=== PATIENT | female | born 1975 | race Caucasian/White ===

== ENCOUNTER → 2019-10-07 | Outpatient (CLI) | payer OTHER ==
--- NOTE | 2019-10-07 10:55 | KCIC ---
EXAM: ABDOMEN ONE VIEW. HISTORY: Reason pill endoscopy. Assess device clearance prior MRI. COMPARISON: None. FINDINGS: A frontal view of the abdomen is obtained. A device projects over the left upper quadrant, possibly representing a pill endoscopy device in the colonic splenic flexure. There are no distended small bowel loops. There is gas distally. Cholecystectomy clips are noted. Left hip osteoarthritis appears mild to moderate. IMPRESSION: 1. The pill endoscopy device is suspected to be within the colonic splenic flexure, unless this finding is not explained by an overlying artifact. Electronically signed by: aJy Quesada MD (10/07/2019 10:52 AM) [id number]
== END | disposition home or self-care (01) ==
LOC: KCIC MRI 09:36
PROVIDERS: ATTEND Family Medicine
DX: R10.12 Left upper quadrant pain (principal); M16.12 Unilateral primary osteoarthritis, left hip; Z90.49 Acquired absence of other specified parts of digestive tract
CPT/HCPCS: 74018

== ENCOUNTER → 2019-10-14 | Outpatient (CLI) | payer OTHER ==
--- NOTE | 2019-10-14 17:57 | KCIC ---
Study: MRI right ankle without contrast INDICATION: Ongoing ankle pain and swelling after a inversion injury. COMPARISON: None. TECHNIQUE: Multiplanar MR imaging of the right ankle performed without the use of intravenous or intra-articular contrast. FINDINGS: Bones/cartilage: No acute fracture or advanced arthrosis. No full-thickness chondral defect seen at the ankle. No subchondral marrow edema. Ligaments: Very thickened anterior/inferior tibiofibular ligament but without ligament disruption off its tibial or fibular insertions, images 8 through 10 series 7. The interosseous component is intact. The posterior/inferior tibiofibular ligament is intact. Edema/fluid signal along the ATFL but the ligament is taut/intact. Intact CFL and PTFL. Intact deltoid ligament complex. Intact spring ligament. Unremarkable Lisfranc ligament complex. Musculotendinous: The peroneus brevis is heterogeneous below the lateral malleolus but there is no definite longitudinal split tear. The peroneus longus is intact. Intact flexor tendons. Intact extensor tendons. Unremarkable Achilles. Sinus Tarsi: Within normal limits. Tarsal tunnel: Normal. Plantar fascia: Mildly thickened plantar fascia central band at its origin. No fascial tear. Miscellaneous: Small amount of fluid within the distal syndesmotic recess. Ankle joint effusion that is relatively small. Small subtalar joint effusion as well. Lateral more so than medial ankle soft tissue edema. IMPRESSION: 1. Findings compatible with a prior high ankle sprain with a very thickened anterior/inferior tibiofibular ligament. The additional components of the distal syndesmosis appear intact. The lateral ankle ligaments are intact. An ankle joint effusion is noted and there is lateral more so than medial ankle soft tissue swelling. Though anterolateral ankle impingement is more often caused by ATFL injury, the degree of a AITFL thickening could predispose to this condition. Recommend correlation with patient symptomatology as this is a clinical diagnosis. 2. Mildly heterogeneous but favored intact peroneus brevis. No acute tendon injury or significant tendinosis. Electronically signed by: HANS GILBERT MD (10/14/2019 5:54 PM) [id number]
== END ==
LOC: KCIC MRI 14:06
PROVIDERS: ATTEND Family Medicine
DX: S93.431A Sprain of tibiofibular ligament of right ankle, initial encounter (principal); M25.471 Effusion, right ankle; R60.0 Localized edema; X58.XXXA Exposure to other specified factors, initial encounter; Y93.89 Activity, other specified; Y92.89 Other specified places as the place of occurrence of the external cause; Y99.8 Other external cause status
CPT/HCPCS: 73721